=== PATIENT | male | born 1950 | race Caucasian/White ===

== ENCOUNTER 2017-03-06 12:11 | Emergency (ER) | payer MEDICARE ==
[~2017-03-06] VITALS: Ht 162.6 cm; Wt 61.4 kg
[2017-03-06 12:43] VITALS: BP 163/89; PULSE 79; RESP 16; O2SAT 99
--- NOTE | 2017-03-06 13:29 | ED.REPORT ---
HPI-Psychiatric Illness Date of Service Mar 06, 2017 ED Provider: Jose Jose MD A deaf 66 year old male with a history of PTSD and thyroid disease is brought to the ED for a mental evaluation. The pt has reportedly been off of his medications and acting strangely. This behavior includes rambling and acting aggressively. The pt has been DO'd five times previously, the last of which was at [facility] in [place]. History is limited by pt mental status. Nursing Notes Stated Complaint: MENTAL EVAL/MED ADJ Chief Complaint: Psychiatric Complaint Nursing Notes Reviewed: Yes Allergies: Coded Allergies: bupropion (Unverified Allergy, Unknown, 03/06/17) divalproex sodium (Unverified Allergy, Unknown, 03/06/17) Uncoded Allergies: RISPERDONE (Allergy, Unknown, 03/06/17) General Time Seen by MD: 13:28 Chief Complaint Other (Mental evaluation) Unable to Obtain Hx: Mental status Arrived By: Walk-in Symptom Duration: Since onset Recent Healthcare: No recent hospitalization Similar Sx Previous: No Risk-Psychiatric Illness Suicide Risk Stratification RF Statements: Risk factors reviewed Past Medical History Past Medical History PTSD thyroid disease deaf Past Surgical History none reported Smoking History Unknown if Ever Smoker Ambulatory Status Independent Review of Systems Unable to Obtain ROS Mental status Physical Exam Initial Vital Signs Vital Signs (First) Date Time Temp Pulse Resp B/P Pulse Ox O2 Delivery O2 Flow Rate FiO2 03/06/17 12:43 36.7 79 16 163/89 99 Room Air Initial VS: Reviewed General/Constitutional: Awake, Alert screaming incoherently Neurologic: No motor deficits, No sensory deficits Psychiatric: generally aggressive behavior difficulty to redirect Head / Eyes: Atraumatic, Normocephalic, EOMI ENT: Atraumatic, Airway patent, Mucous membranes moist Respiratory / Chest: Atraumatic, No respiratory distress Cardiovascular: Heart rate NL Abdomen: Atraumatic Skin: Color NL, Dry Neck: Atraumatic, Full range of motion Back: Atraumatic, Full range of motion Upper Extremity / MS: Atraumatic, Full range of motion Lower Extremity / Pelvis / MS: Atraumatic, Full range of motion Interpretation & Diagnostics Lab Results Interpretation Result Diagram: 03/06/17 1355 03/06/17 1355 Test 03/06/17 13:55 03/06/17 16:26 White Blood Count 11.4th/mm3 (3.8-10.1) Red Blood Count 4.39mil/mm3 (4.40-5.80) Hemoglobin 13.3g/dL (13.8-17.2) Hematocrit 39.2% (41.0-50.0) Mean Corpuscular Volume 89.3fL (81-100) Mean Corpuscular Hemoglobin 30.3pg (27.0-35.0) Mean Corpuscular Hemoglobin Concent 33.9% (32.0-37.0) Red Cell Distribution Width 13.1% (12.3-15.4) Platelet Count 256bil/L (150-400) Neutrophils (%) (Auto) 83.4% (40-74) Lymphocytes (%) (Auto) 9.7% (14-46) Monocytes (%) (Auto) 4.9% (4-12) Eosinophils (%) (Auto) 1.4% (0-5) Basophils (%) (Auto) 0.4% (0-3) Sodium Level 138mEq/L (134-144) Potassium Level 4.1mEq/L (3.5-5.2) Chloride Level 102mEq/L (97-108) Carbon Dioxide Level 21mmol/L (18-29) Blood Urea Nitrogen 22mg/dL (8-27) Creatinine 1.15mg/dL (0.76-1.27) Estimat Glomerular Filtration Rate 68mL/min (>59) Glucose Level 138mg/dL (60-99) Calcium Level 9.4mg/dL (8.5-10.1) Total Bilirubin 0.2mg/dL (0.0-1.2) Aspartate Amino Transf (AST/SGOT) 59U/L (0-50) Alanine Aminotransferase (ALT/SGPT) 44U/L (0-44) Alkaline Phosphatase 74U/L (25-160) Total Protein 7.1g/dL (6.4-8.4) Albumin 4.2g/dL (3.4-5.0) Thyroid Stimulating Hormone (TSH) 12.090uIU/mL (0.450-4.500) Hold Hart Top Tube Received (Received) Alcohols < 10mg/dL (0-10) Re-Eval/Medical Decision Med Decision/Clinical Course Patient is clearly disorganized and in a manic phase. Patient seems to be in no condition to make appropriate personal or healthcare decisions and does not seem safe to be out on the street. Given his prior psychiatric history recommend DO Counseled Regarding: Diagnosis, Lab results, Need for follow-up, When/why to return to ED Discharge & Departure Shift Change Sign-Out Patient Care Transferred: Yes Discussed Complaint(s): Yes Laboratory Evaluation: Lab evaluation discussed Impression: Primary Impression: Psychosis Psychosis type: unspecified psychosis type Qualified Code: F29 - Unspecified psychosis not due to a substance or known physiological condition Disposition: Home Discharge Condition All VS Reviewed: Yes Condition: Stable Referrals: Adama Deleon MD (Family) Care Transferred to: Dr. Aponte [facility] Transferred at: 18:00 Scribe Attestation Portions of this note were transcribed by Brittany Coe. I, Dr. Jose personally performed the history, physical exam and medical decision-making; I reviewed and confirmed the accuracy of the information in the transcribed note. copies to: Adama Deleon MD, Timothy S DO Mar 06, 2017 13:28 BRITTANY COE Mar 06, 2017 13:47
[2017-03-06] MEDS ORDERED: LORazepam 2 mg Tablet PO ONE (13:40)
[2017-03-06 14:09] LABS: BASOPHILS % (AUTO) 0.4 % (0-3); EOSINOPHILS % (AUTO) 1.4 % (0-5); MONOCYTES % (AUTO) 4.9 % (4-12); Mean Corpuscular Hemoglobin 30.3 pg (27.0-35.0); Mean Corpuscular Volume 89.3 fL (81-100); NEUTROPHILS % (AUTO) 83.4 % (40-74); Platelet Count 256 bil/L (150-400)
[2017-03-06 17:11] VITALS: BP 134/80; RESP 20; O2SAT 98
== END 2017-03-06 20:29 | disposition home or self-care (01) ==
LOC: SED 12:11
DX: F29 Unspecified psychosis not due to a substance or known physiological condition (principal); F30.12 Manic episode without psychotic symptoms, moderate; F91.8 Other conduct disorders; E07.9 Disorder of thyroid, unspecified; H91.90 Unspecified hearing loss, unspecified ear
CPT/HCPCS: 36415; 80053; 81002; 84443; 85025; 90791; 99284; G0480